=== PATIENT | female | born 1995 | race Caucasian/White ===

== ENCOUNTER 2020-02-07 09:41 | Emergency (ER) | payer OTHER ==
[2020-02-07 10:12] VITALS: BP 120/77
[2020-02-07] MEDS ORDERED: AUGMENTIN500TAB PO (11:06)
== END 2020-02-07 11:13 | disposition home or self-care (01) ==
LOC: ED 09:41
DX: J02.0 Streptococcal pharyngitis (principal); Z86.19 Personal history of other infectious and parasitic diseases

== ENCOUNTER 2020-08-09 19:38 | Emergency (ER) | payer SELFPAY ==
[~2020-08-09] VITALS: Ht 162.6 cm; Wt 81.8 kg
[~2020-08-09 19:38] MED LIST: AUGMENTIN500TAB PO
[2020-08-09] MEDS ORDERED: CLARITIN10 M1 PO (20:21)
[2020-08-09] MEDS ORDERED: AMOXICILLIN500 MG PO (20:21)
[2020-08-09 20:55] VITALS: BP 139/78
== END 2020-08-09 20:55 | disposition home or self-care (01) | DRG 153 ==
LOC: ED 19:38
DX: J02.9 Acute pharyngitis, unspecified (principal); Z20.828 Contact with and (suspected) exposure to other viral communicable diseases

== ENCOUNTER 2021-05-14 14:23 | Emergency (ER) | payer MEDICAID ==
[~2021-05-14] VITALS: Ht 162.6 cm; Wt 91.0 kg
[~2021-05-14 14:23] MED LIST changes: +AMOXICILLIN500 MG PO; +CLARITIN10 M1 PO
[2021-05-14 15:42] LABS: HEMATOCRIT 38.5 % (37.0-47.0); HEMOGLOBIN 11.8 g/dl (12.0-16.0); IMMATURE GRANULOCYTES 0.1 % (0.0-5.0); MEAN CELL VOLUME 80.9 fL CALC (80.0-100.0); MEAN CORPUSCULAR HGB 24.8 pG CALC (26.0-32.0); MEAN CORPUSCULAR HGB CONC 30.6 g/dL CAL (32.0-36.0); NEUT# 5.31 thou/uL (2.00-7.15); RED BLOOD COUNT 4.76 mill/uL (4.20-5.60); RED CELL DISTRI WIDTH 15.3 % (11.5-15.5); URINE BILIRUBIN - DIPSTICK NEGATIVE (NEGATIVE); URINE BLOOD DIPSTICK LARGE (NEGATIVE); URINE COLOR YELLOW; URINE GLUCOSE - DIPSTICK NEGATIVE (NEGATIVE); URINE KETONE NEGATIVE (NEGATIVE); URINE PH 7.5 (4.5-8.0); URINE PROTEIN - DIPSTICK NEGATIVE (NEG-TRACE); URINE UROBILINOGEN - DIPSTICK 0.2 E.U./dL (0.2)
[2021-05-14 15:43] LABS: URINE LEUK ESTERASE LARGE (NEGATIVE); URINE NITRITE - DIPSTICK NEGATIVE (Negative)
[2021-05-14 15:47] LABS: ALKALINE PHOSPHATASE 50 u/l (38-126); ANION GAP 12 (6-22 (CALC)); BILIRUBIN, TOTAL 0.3 mg/dL (0.0-1.4); BUN 13 mg/dL (7-17); BUN/CREATININE RATIO 21 (12-20 (CALC)); CARBON DIOXIDE 25 mmol/l (22-30); CHLORIDE 102 mmol/l (95-108); CREATININE 0.6 mg/dL (0.5-1.0); GFR > 60 ML/MIN (>=60 (CALC)); GFR FOR AFR.AMER. > 60 ML/MIN (>=60 (CALC)); POTASSIUM 4.2 mmol/l (3.5-5.1); SGOT/AST 28 u/l (14-36); SODIUM 136 mmol/l (137-146); TOTAL PROTEIN 7.5 g/dL (6.3-8.2)
[2021-05-14 15:53] LABS: URINE SQUAMOUS EPITHELIAL CELL MANY EPI/hpf (0-FEW)
[2021-05-14] MEDS ORDERED: KEFLEX500 MG PO (17:47)
[2021-05-14 18:24] VITALS: BP 131/84
== END 2021-05-14 18:30 | disposition home or self-care (01) ==
LOC: ED 14:23
PROVIDERS: Physician Assistant Surgical
DX: N83.291 Other ovarian cyst, right side (principal); Z20.822 Contact with and (suspected) exposure to COVID-19
CPT/HCPCS: Q9967

== ENCOUNTER 2021-10-23 14:39 | Emergency (ER) | payer MEDICAID ==
[~2021-10-23 14:39] MED LIST changes: +KEFLEX500 MG PO
== END 2021-10-23 16:32 | disposition left against medical advice (07) | DRG 951 ==
LOC: ED 14:39 → LWOBS 16:30
DX: Z53.21 Procedure and treatment not carried out due to patient leaving prior to being seen by health care provider (principal)

== ENCOUNTER 2021-11-05 23:26 | Emergency (ER) | payer MEDICAID ==
[~2021-11-05] VITALS: Ht 162.6 cm; Wt 85.0 kg
[2021-11-06] VITALS (10 sets, daily range): BP systolic 108–139; BP diastolic 73–85
[2021-11-06 00:54] LABS: HEMATOCRIT 39.5 % (37.0-47.0); HEMOGLOBIN 12.5 g/dl (12.0-16.0); IMMATURE GRANULOCYTES 0.5 % (0.0-5.0); MEAN CELL VOLUME 82.8 fL CALC (80.0-100.0); MEAN CORPUSCULAR HGB 26.2 pG CALC (26.0-32.0); MEAN CORPUSCULAR HGB CONC 31.6 g/dL CAL (32.0-36.0); NEUT# 8.66 thou/uL (2.00-7.15); RED BLOOD COUNT 4.77 mill/uL (4.20-5.60); RED CELL DISTRI WIDTH 15.1 % (11.5-15.5)
[2021-11-06 00:56] LABS: URINE BILIRUBIN - DIPSTICK NEGATIVE (NEGATIVE); URINE BLOOD DIPSTICK NEGATIVE (NEGATIVE); URINE COLOR YELLOW; URINE GLUCOSE - DIPSTICK NEGATIVE (NEGATIVE); URINE KETONE NEGATIVE (NEGATIVE); URINE LEUK ESTERASE NEGATIVE (NEGATIVE); URINE PROTEIN - DIPSTICK NEGATIVE (NEG-TRACE); URINE SPECIFIC GRAVITY 1.015
[2021-11-06 01:09] LABS: ALKALINE PHOSPHATASE 68 u/l (38-126); ANION GAP 12 (6-22 (CALC)); BILIRUBIN, TOTAL 0.4 mg/dL (0.0-1.4); BUN 8 mg/dL (7-17); BUN/CREATININE RATIO 14 (12-20 (CALC)); CARBON DIOXIDE 25 mmol/l (22-30); CHLORIDE 102 mmol/l (95-108); CREATININE 0.6 mg/dL (0.5-1.0); GFR > 60 ML/MIN (>=60 (CALC)); GFR FOR AFR.AMER. > 60 ML/MIN (>=60 (CALC)); LIPASE 93 u/l (23-300); POTASSIUM 4.2 mmol/l (3.5-5.1); SGOT/AST 39 u/l (14-36); SODIUM 135 mmol/l (137-146); TOTAL PROTEIN 8.2 g/dL (6.3-8.2)
[2021-11-06 01:10] LABS: URINE NITRITE - DIPSTICK NEGATIVE (Negative)
[2021-11-06 01:33] LABS: BETA-HCG, QUANT(RESULT NUMBER) 76432 mIU/mL
[2021-11-06] MEDS ORDERED: DICLEGIS1 TAB PO (04:12)
== END 2021-11-06 04:24 | disposition home or self-care (01) ==
LOC: ED 23:26
DX: O26.851 Spotting complicating pregnancy, first trimester (principal); O21.9 Vomiting of pregnancy, unspecified; Z3A.01 Less than 8 weeks gestation of pregnancy

== ENCOUNTER 2021-11-12 20:15 | Emergency (ER) | payer MEDICAID ==
[~2021-11-12] VITALS: Ht 162.6 cm; Wt 86.0 kg
[~2021-11-12 20:15] MED LIST changes: +DICLEGIS1 TAB PO
[2021-11-12 20:30] VITALS: BP 121/70
[2021-11-12] MEDS ORDERED: TRIAMCINOLON0.11 EX (20:40)
[2021-11-12 20:45] VITALS: BP 121/70
== END 2021-11-12 20:53 | disposition home or self-care (01) ==
LOC: ED 20:15
DX: L25.9 Unspecified contact dermatitis, unspecified cause (principal)

== ENCOUNTER 2021-12-20 01:43 | Emergency (ER) | payer MEDICAID ==
[~2021-12-20] VITALS: Ht 160 cm; Wt 77.0 kg
[~2021-12-20 01:43] MED LIST changes: +TRIAMCINOLON0.11 EX
[2021-12-20 01:53] VITALS: BP 122/74
[2021-12-20] MEDS ORDERED: TRIAMCINOLON0.13 EX (02:03)
[2021-12-20 03:07] VITALS: BP 122/74
== END 2021-12-20 03:07 | disposition home or self-care (01) ==
LOC: ED 01:43
DX: L30.9 Dermatitis, unspecified (principal)

== ENCOUNTER 2021-12-26 17:15 | Emergency (ER) | payer MEDICAID ==
[2021-12-26] VITALS (13 sets, daily range): BP systolic 94–117; BP diastolic 60–78
[~2021-12-26] VITALS: Ht 160 cm; Wt 77.2 kg
[~2021-12-26 17:15] MED LIST changes: +TRIAMCINOLON0.13 EX
[2021-12-26 19:08] LABS: HEMATOCRIT 38.2 % (37.0-47.0); HEMOGLOBIN 12.7 g/dl (12.0-16.0); IMMATURE GRANULOCYTES 0.2 % (0.0-5.0); MEAN CELL VOLUME 83.6 fL CALC (80.0-100.0); MEAN CORPUSCULAR HGB 27.8 pG CALC (26.0-32.0); MEAN CORPUSCULAR HGB CONC 33.2 g/dL CAL (32.0-36.0); NEUT# 12.91 thou/uL (2.00-7.15); RED BLOOD COUNT 4.57 mill/uL (4.20-5.60); RED CELL DISTRI WIDTH 14.5 % (11.5-15.5)
[2021-12-26 19:09] LABS: URINE BILIRUBIN - DIPSTICK NEGATIVE (NEGATIVE); URINE BLOOD DIPSTICK NEGATIVE (NEGATIVE); URINE COLOR YELLOW; URINE GLUCOSE - DIPSTICK NEGATIVE (NEGATIVE); URINE KETONE TRACE mg/dL (NEGATIVE); URINE PROTEIN - DIPSTICK TRACE mg/dL (NEG-TRACE)
[2021-12-26 19:18] LABS: URINE LEUK ESTERASE MODERATE (NEGATIVE); URINE NITRITE - DIPSTICK NEGATIVE (Negative)
[2021-12-26 19:21] LABS: URINE RBC 0-2 RBC/hpf (0-5)
[2021-12-26 19:22] LABS: URINE SQUAMOUS EPITHELIAL CELL MODERATE EPI/hpf (0-FEW)
[2021-12-26 19:29] LABS: ALBUMIN 3.9 g/dL (3.2-5.0); ALKALINE PHOSPHATASE 60 u/l (38-126); ANION GAP 12 (6-22 (CALC)); BILIRUBIN, TOTAL 0.5 mg/dL (0.0-1.4); BUN 7 mg/dL (7-17); BUN/CREATININE RATIO 15 (12-20 (CALC)); CARBON DIOXIDE 22 mmol/l (22-30); CHLORIDE 104 mmol/l (95-108); CREATININE 0.5 mg/dL (0.5-1.0); GFR > 60 ML/MIN (>=60 (CALC)); GFR FOR AFR.AMER. > 60 ML/MIN (>=60 (CALC)); LIPASE 81 u/l (23-300); POTASSIUM 3.8 mmol/l (3.5-5.1); SGOT/AST 28 u/l (14-36); SODIUM 134 mmol/l (137-146); TOTAL PROTEIN 7.7 g/dL (6.3-8.2)
[2021-12-26 20:10] LABS: BETA-HCG, QUANT(RESULT NUMBER) 38603 mIU/mL
[2021-12-26] MEDS ORDERED: ONDANSETRON4 MG PO (20:25)
[2021-12-26] MEDS ORDERED: KEFLEX500 MG PO (20:25)
== END 2021-12-26 21:05 | disposition home or self-care (01) ==
LOC: ED 17:15
PROVIDERS: Nurse Practitioner
DX: O20.0 Threatened abortion (principal); O23.42 Unspecified infection of urinary tract in pregnancy, second trimester; N39.0 Urinary tract infection, site not specified; Z3A.14 14 weeks gestation of pregnancy

== ENCOUNTER 2022-06-23 08:07 | Emergency (ER) | payer MEDICAID ==
[~2022-06-23] VITALS: Ht 160 cm; Wt 72.7 kg
[~2022-06-23 08:07] MED LIST changes: +ONDANSETRON4 MG PO
[2022-06-23] MEDS ORDERED: AMOX/K CLAV875 M1 PO (08:18)
[2022-06-23 08:38] VITALS: BP 105/82
== END 2022-06-23 08:38 | disposition home or self-care (01) ==
LOC: ED 08:07
DX: J02.9 Acute pharyngitis, unspecified (principal)

== ENCOUNTER 2022-07-19 02:32 | Emergency (ER) | payer MEDICAID ==
[~2022-07-19] VITALS: Ht 160 cm; Wt 70.0 kg
[~2022-07-19 02:32] MED LIST changes: +AMOX/K CLAV875 M1 PO
[2022-07-19 03:14] LABS: HEMATOCRIT 35.5 % (37.0-47.0); IMMATURE GRANULOCYTES 0.6 % (0.0-5.0); MEAN CELL VOLUME 78.9 fL CALC (80.0-100.0); MEAN CORPUSCULAR HGB 24.4 pG CALC (26.0-32.0); NEUT# 8.93 thou/uL (2.00-7.15); RED BLOOD COUNT 4.5 mill/uL (4.20-5.60); RED CELL DISTRI WIDTH 16.5 % (11.5-15.5)
[2022-07-19 03:31] LABS: D-DIMER 0.72 mg/L (0.19-0.60)
[2022-07-19 03:33] LABS: ALBUMIN 4.1 g/dL (3.2-5.0); BILIRUBIN, TOTAL 0.7 mg/dL (0.0-1.4); BUN 9 mg/dL (7-17); BUN/CREATININE RATIO 13 (12-20 (CALC)); CHLORIDE 105 mmol/l (95-108); CPK 75 u/l (30-165); CREATININE 0.7 mg/dL (0.5-1.0); GFR FOR AFR.AMER. > 60 ML/MIN (>=60 (CALC)); GFR OTHER RACES > 60 ML/MIN (>=60 (CALC)); POTASSIUM 3.6 mmol/l (3.5-5.1); TOTAL PROTEIN 7.8 g/dL (6.3-8.2)
[2022-07-19 03:34] LABS: ACT PARTIAL THROMBO TIME 25.5 SECONDS (20.0-32.5); ALKALINE PHOSPHATASE 116 u/l (38-126); ANION GAP 11 (6-22 (CALC)); CARBON DIOXIDE 30 mmol/l (22-30); PROTHROMBIN TIME 9.8 SECONDS (9.0-12.5); SGOT/AST 448 u/l (14-36); SODIUM 142 mmol/l (137-146)
[2022-07-19 03:42] LABS: MYOGLOBIN 13 ng/mL (0 - 62)
[2022-07-19 03:47] LABS: URINE BLOOD DIPSTICK NEGATIVE (NEGATIVE); URINE COLOR YELLOW; URINE GLUCOSE - DIPSTICK NEGATIVE (NEGATIVE); URINE KETONE NEGATIVE (NEGATIVE); URINE PH 8.5 (4.5-8.0); URINE PROTEIN - DIPSTICK 100 mg/dL (NEG-TRACE)
[2022-07-19 03:48] LABS: URINE BILIRUBIN - DIPSTICK SMALL (NEGATIVE); URINE LEUK ESTERASE LARGE (NEGATIVE); URINE NITRITE - DIPSTICK NEGATIVE (Negative)
[2022-07-19 03:56] LABS: URINE AMORPH SEDIMENT FEW hpf (NONE-FEW); URINE BACTERIA MANY hpf; URINE MUCUS FEW hpf (NONE-FEW); URINE SQUAMOUS EPITHELIAL CELL FEW EPI/hpf (0-FEW)
[2022-07-19 04:08] VITALS: BP 134/98
[2022-07-19] MEDS ORDERED: BACTRIM DS1 TAB PO (05:14)
[2022-07-19 05:18] VITALS: BP 128/98
[2022-07-19 05:19] VITALS: BP 131/89
== END 2022-07-19 05:31 | disposition home or self-care (01) ==
LOC: ED 02:32
PROVIDERS: Family Medicine
DX: O86.20 Urinary tract infection following delivery, unspecified (principal); N39.0 Urinary tract infection, site not specified; O90.89 Other complications of the puerperium, not elsewhere classified; R07.89 Other chest pain; R74.8 Abnormal levels of other serum enzymes
CPT/HCPCS: Q9967

== ENCOUNTER 2022-11-11 14:26 | Emergency (ER) | payer MEDICAID ==
[~2022-11-11] VITALS: Ht 160 cm; Wt 80.0 kg
[~2022-11-11 14:26] MED LIST changes: +BACTRIM DS1 TAB PO
[2022-11-11] MEDS ORDERED: BACTRIM DS1 TAB PO (16:00)
[2022-11-11 17:59] VITALS: BP 130/66
== END 2022-11-11 18:04 | disposition home or self-care (01) ==
LOC: ED 14:26
DX: L02.01 Cutaneous abscess of face (principal)

== ENCOUNTER 2022-11-17 12:45 | Emergency (ER) | payer MEDICAID ==
[~2022-11-17] VITALS: Ht 160 cm; Wt 80.0 kg
[2022-11-17 15:57] VITALS: BP 143/82
== END 2022-11-17 16:05 | disposition home or self-care (01) ==
LOC: ED 12:45
DX: S00.83XA Contusion of other part of head, initial encounter (principal); W10.9XXA Fall (on) (from) unspecified stairs and steps, initial encounter